=== PATIENT | female | born 1965 | race Caucasian/White ===

== ENCOUNTER → 2016-06-16 | Outpatient (CLI) | payer OTHER ==
[~2016-06-16] MED LIST: ACET50TA OR; BENA25TA4 PO; CYCL10TA PO; IBUP800T23 PO; OMEP40CA2 PO; RISE1TAB8 PO; VITA1CHW8 PO; ZOMI5TAB3 PO; ZOMI5TAB4 PO; metoprolol; pepcid; prednisone
== END ==
LOC: M LAB 14:49
PROVIDERS: ATTEND Family Medicine
DX: R53.83 Other fatigue (principal)

== ENCOUNTER → 2016-07-19 | Outpatient (REF) | payer OTHER ==
[2016-07-23 00:06] LABS: IgG SERUM (part of Subclasses) 764 mg/dL (700-1600); IgG Subclass 1 414 mg/dL (422-1292); IgG Subclass 2 218 mg/dL (117-747); IgG Subclass 3 34 mg/dL (41-129); IgG Subclass 4 14 mg/dL (1-291)
== END ==
LOC: M LAB REF 16:35
PROVIDERS: ATTEND Internal Medicine Medical Oncology
DX: D72.819 Decreased white blood cell count, unspecified (principal)

== ENCOUNTER → 2017-01-31 | Outpatient (CLI) | payer OTHER ==
[~2017-01-31] MED LIST changes: +IBUP1TAB7 PO; -IBUP800T23 PO; +ZOMI5TAB12 PO; -ZOMI5TAB4 PO
[2017-01-31 19:37] LABS: EOS % 0.7 % (0.0-3.0); IMMATURE GRANULOCYTE % 0.2 % (0-0); LYMPH # 1.2 10^3/uL (1.5-4.5); LYMPH % 28.9 % (24.0-44.0); MEAN CORPUSCULAR HEMOGLOBIN 27.4 pg (27.0-33.0); MEAN CORPUSCULAR HGB CONC 32.4 g/dl (32.0-36.5); MEAN CORPUSCULAR VOLUME 84.5 fl (80.0-96.0); MONO # 0.2 10^3/uL (0.0-0.8); MONO % 5.5 % (0.0-5.0); NEUTROPHILS # 2.6 10^3/uL (1.8-7.7); NEUTROPHILS % 63.7 % (36.0-66.0); PLATELET COUNT, AUTOMATED 287 10^3/uL (150-450); RED CELL DISTRIBUTION WIDTH 13.6 % (11.5-14.5)
[2017-01-31 20:13] LABS: ALBUMIN 4.2 GM/DL (3.2-5.2); ALBUMIN/GLOBULIN RATIO 1.27 (1.00-1.93); ALKALINE PHOSPHATASE 78 U/L (45-117); ALT/SGPT 24 U/L (12-78); ANION GAP 6 MEQ/L (8-16); AST/SGOT 16 U/L (7-37); BILIRUBIN,TOTAL 0.8 MG/DL (0.2-1.0); BLOOD UREA NITROGEN 9 MG/DL (7-18); CALCIUM LEVEL 9.6 MG/DL (8.5-10.1); CARBON DIOXIDE LEVEL 31 MEQ/L (21-32); CHLORIDE LEVEL 100 MEQ/L (98-107); CREATININE FOR GFR 0.58 MG/DL (0.55-1.02); GLOMERULAR FILTRATION RATE > 60.0 (>51); GLUCOSE, FASTING 87 MG/DL (70-105); POTASSIUM SERUM 4.5 MEQ/L (3.5-5.1); SODIUM LEVEL 137 MEQ/L (136-145); TOTAL PROTEIN 7.5 GM/DL (6.4-8.2)
== END ==
LOC: M LAB 17:51
PROVIDERS: ATTEND Family Medicine
DX: R10.9 Unspecified abdominal pain (principal)

== ENCOUNTER → 2017-03-20 | Outpatient (REF) | payer OTHER ==
[2017-03-21 14:53] LABS: APPEARANCE, URINE CLEAR (CLEAR); BACTERIA, URINE AUTO NEGATIVE (NEGATIVE); BILIRUBIN, URINE AUTO NEGATIVE (NEGATIVE); BLOOD, URINE BLOOD NEGATIVE (NEGATIVE); CALCIUM OXALATE CRYSTALS SMALL; COLOR, URINE YELLOW (YELLOW); GLUCOSE, URINE (UA) AUTO NEGATIVE (NEGATIVE); KETONE, URINE AUTO NEGATIVE (NEGATIVE); LEUKOCYTE ESTERASE, URINE AUTO NEGATIVE (NEGATIVE); MUCUS, URINE SMALL (NEGATIVE); NITRITE, URINE AUTO NEGATIVE (NEGATIVE); PROTEIN, URINE AUTO NEGATIVE (NEGATIVE); RBC, URINE AUTO 2 /HPF (0-3); SPECIFIC GRAVITY URINE AUTO 1.018 (1.002-1.035); SQUAMOUS EPITHELIAL CELL UR AU 0 /HPF (0-6); UROBILINOGEN, URINE AUTO 0.2 mg/dL (0.0-2.0); WBC, URINE AUTO 1 /HPF (0-3)
== END ==
LOC: M LAB REF 03-21 14:03
DX: N39.0 Urinary tract infection, site not specified (principal)

== ENCOUNTER 2017-04-25 20:48 | Inpatient (IN) | payer OTHER ==
[2017-04-25] MEDS: GABAPENTIN 300 MG CAP PO (21:00)
[2017-04-25] MEDS: GASTROGRAFIN SOLUTION 30ML PO ×2 (22:50→23:20)
[2017-04-25] MEDS: ONDANSETRON 4MG/2ML VIAL (J2405) IV (23:04)
[2017-04-25] MEDS: MORPHINE 4 MG/ML 1ML VIAL (J2270) IV (23:05)
[2017-04-25 23:09] LABS: BASO % 0.3 % (0.0-1.0); EOS % 0.5 % (0.0-3.0); HEMATOCRIT 36.3 % (36.0-47.0); HEMOGLOBIN 11.8 g/dl (12.0-16.0); IMMATURE GRANULOCYTE % 0.2 % (0-3.0); LYMPH # 1.2 10^3/uL (1.5-4.5); LYMPH % 18.2 % (24.0-44.0); MEAN CORPUSCULAR HEMOGLOBIN 27.3 pg (27.0-33.0); MEAN CORPUSCULAR HGB CONC 32.5 g/dl (32.0-36.5); MEAN CORPUSCULAR VOLUME 83.8 fl (80.0-96.0); MONO # 0.5 10^3/uL (0.0-0.8); MONO % 7.1 % (0.0-5.0); NEUTROPHILS # 4.7 10^3/uL (1.8-7.7); NEUTROPHILS % 73.7 % (36.0-66.0); PLATELET COUNT, AUTOMATED 209 10^3/uL (150-450); RED BLOOD COUNT 4.33 10^6/uL (4.00-5.40); RED CELL DISTRIBUTION WIDTH 14.1 % (11.5-14.5); WHITE BLOOD COUNT 6.3 10^3/uL (4.0-10.0)
[2017-04-25 23:36] LABS: ALBUMIN/GLOBULIN RATIO 1.48 (1.00-1.93); ALKALINE PHOSPHATASE 79 U/L (45-117); ALT/SGPT 19 U/L (12-78); ANION GAP 8 MEQ/L (8-16); AST/SGOT 11 U/L (7-37); BILIRUBIN,DIRECT 0.2 MG/DL (0.0-0.2); BILIRUBIN,TOTAL 1.1 MG/DL (0.2-1.0); BLOOD UREA NITROGEN 12 MG/DL (7-18); CALCIUM LEVEL 8.9 MG/DL (8.5-10.1); CARBON DIOXIDE LEVEL 29 MEQ/L (21-32); CHLORIDE LEVEL 102 MEQ/L (98-107); CREATININE FOR GFR 0.58 MG/DL (0.55-1.30); GLOMERULAR FILTRATION RATE > 60.0 (>51); GLUCOSE, FASTING 103 MG/DL (70-100); LIPASE 163 U/L (73-393); POTASSIUM SERUM 3.9 MEQ/L (3.5-5.1); SODIUM LEVEL 139 MEQ/L (136-145); TOTAL PROTEIN 6.7 GM/DL (6.4-8.2)
[2017-04-25 23:36] LABS: LACTIC ACID SEPSIS PROTOCOL 0.9 MMOL/L (0.4-2.0)
[2017-04-26] MEDS: METOCLOPRAMIDE INJ 10MG/2ML VIAL (J2765) IV (00:30)
[2017-04-26] MEDS ORDERED: ISOVUE-370 76% 100ML VIAL (Q9967) As Ordered (00:30)
[2017-04-26] MEDS: metroNIDAZOLE 750 MG in APPROPRIATE DILUENT 1 EA IV (01:45)
[2017-04-26] MEDS: CIPROFLOXACIN 400 MG in APPROPRIATE DILUENT 1 EA IV ×2 (01:50→15:36)
[2017-04-26] MEDS: HYDROmorphone HCL 1 MG/ML SYRINGE (J1170) IV (01:59)
[2017-04-26] MEDS: NS 1,000 ML IV ×3 (03:28→15:18)
[2017-04-26] MEDS ORDERED: MORPHINE 4 MG/ML 1ML VIAL (J2270) IV (03:30)
[2017-04-26] MEDS ORDERED: ONDANSETRON 4MG/2ML VIAL (J2405) IV (03:45)
[2017-04-26] MEDS: ZOLMitriptan TABLET 2.5MG PO ×2 (05:25→05:27)
[2017-04-26 06:15] LABS: HEMATOCRIT 34.8 % (36.0-47.0); HEMOGLOBIN 11.5 g/dl (12.0-16.0); MEAN CORPUSCULAR VOLUME 84.7 fl (80.0-96.0); PLATELET COUNT, AUTOMATED 196 10^3/uL (150-450); RED BLOOD COUNT 4.11 10^6/uL (4.00-5.40); RED CELL DISTRIBUTION WIDTH 14.3 % (11.5-14.5); WHITE BLOOD COUNT 5.2 10^3/uL (4.0-10.0)
[2017-04-26 06:37] LABS: ANION GAP 6 MEQ/L (8-16); BLOOD UREA NITROGEN 9 MG/DL (7-18); CALCIUM LEVEL 8.6 MG/DL (8.5-10.1); CARBON DIOXIDE LEVEL 31 MEQ/L (21-32); CHLORIDE LEVEL 102 MEQ/L (98-107); CREATININE FOR GFR 0.53 MG/DL (0.55-1.30); GLOMERULAR FILTRATION RATE > 60.0 (>51); GLUCOSE, FASTING 105 MG/DL (70-100); MAGNESIUM LEVEL 2.1 MG/DL (1.8-2.4); SODIUM LEVEL 139 MEQ/L (136-145)
[2017-04-26] MEDS ORDERED: SIMETHICONE 80 MG CHEW TAB PO (08:15)
[2017-04-26] MEDS: VITAMIN D 1,000 INTERNATIONAL UNITS TABLET PO (09:00)
[2017-04-26] MEDS: ENOXAPARIN 40 MG/0.4 ML SYRINGE (J1650) SC (09:05)
[2017-04-26] MEDS: PANTOPRAZOLE 40MG INJ (PROTONIX) (C9113) IV ×2 (09:05→20:01)
[2017-04-26] MEDS: KETOROLAC 30 MG/ML VIAL (J1885) IV ×2 (09:05→20:02)
[2017-04-26] MEDS: metroNIDAZOLE 500 MG in APPROPRIATE DILUENT 1 EA IV ×2 (11:27→20:02)
[2017-04-26] MEDS ORDERED: metroNIDAZOLE 500 MG in APPROPRIATE DILUENT 1 EA IV (15:15)
[2017-04-26] MEDS: GABAPENTIN 300 MG CAP PO (20:02)
[2017-04-27] MEDS: NS 1,000 ML IV (01:01)
[2017-04-27] MEDS: metroNIDAZOLE 500 MG in APPROPRIATE DILUENT 1 EA IV ×2 (02:29→10:36)
[2017-04-27] MEDS: CIPROFLOXACIN 400 MG in APPROPRIATE DILUENT 1 EA IV (03:44)
[2017-04-27 06:19] LABS: HEMATOCRIT 32.8 % (36.0-47.0); HEMOGLOBIN 10.7 g/dl (12.0-16.0); MEAN CORPUSCULAR HEMOGLOBIN 27.6 pg (27.0-33.0); MEAN CORPUSCULAR HGB CONC 32.6 g/dl (32.0-36.5); MEAN CORPUSCULAR VOLUME 84.8 fl (80.0-96.0); PLATELET COUNT, AUTOMATED 172 10^3/uL (150-450); RED BLOOD COUNT 3.87 10^6/uL (4.00-5.40); RED CELL DISTRIBUTION WIDTH 14.2 % (11.5-14.5)
[2017-04-27 06:39] LABS: ANION GAP 7 MEQ/L (8-16); BLOOD UREA NITROGEN 8 MG/DL (7-18); CALCIUM LEVEL 8.1 MG/DL (8.5-10.1); CARBON DIOXIDE LEVEL 26 MEQ/L (21-32); CHLORIDE LEVEL 109 MEQ/L (98-107); CREATININE FOR GFR 0.49 MG/DL (0.55-1.30); GLOMERULAR FILTRATION RATE > 60.0 (>51); GLUCOSE, FASTING 86 MG/DL (70-100); MAGNESIUM LEVEL 2.3 MG/DL (1.8-2.4); POTASSIUM SERUM 3.7 MEQ/L (3.5-5.1); SODIUM LEVEL 142 MEQ/L (136-145)
[2017-04-27] MEDS: PANTOPRAZOLE 40MG INJ (PROTONIX) (C9113) IV (10:36)
[2017-04-27] MEDS: VITAMIN D 1,000 INTERNATIONAL UNITS TABLET PO (10:37)
[2017-04-27] MEDS: KETOROLAC 30 MG/ML VIAL (J1885) IV (10:37)
[2017-04-27] MEDS: ENOXAPARIN 40 MG/0.4 ML SYRINGE (J1650) SC (10:37)
[2017-04-27] MEDS: ZOLMitriptan TABLET 2.5MG PO (12:03)
== END 2017-04-27 15:32 | disposition home or self-care (01) | DRG 392 ==
LOC: M ED INP 04-26 03:45 → M ED 20:48 → M MSPAV 04-26 05:40
DX: K57.32 Diverticulitis of large intestine without perforation or abscess without bleeding (principal); M79.7 Fibromyalgia; K58.9 Irritable bowel syndrome, unspecified; M81.0 Age-related osteoporosis without current pathological fracture; M50.30 Other cervical disc degeneration, unspecified cervical region; M19.90 Unspecified osteoarthritis, unspecified site; M54.5 Low back pain; Z88.8 Allergy status to other drugs, medicaments and biological substances; Z85.820 Personal history of malignant melanoma of skin; Z79.899 Other long term (current) drug therapy; Z88.7 Allergy status to serum and vaccine; Z88.5 Allergy status to narcotic agent

== ENCOUNTER → 2017-05-24 | Outpatient (REF) | payer OTHER | LOC: M LAB REF 19:19 | DX: J06.9 Acute upper respiratory infection, unspecified (principal) ==

== ENCOUNTER → 2017-08-14 | Outpatient (CLI) | payer OTHER | LOC: M RAD 07:26 | DX: R10.11 Right upper quadrant pain (principal); R19.7 Diarrhea, unspecified ==

== ENCOUNTER → 2017-08-16 | Outpatient (REF) | payer OTHER ==
[2017-08-16 19:07] LABS: IMMUNOGLOBULIN G 822 MG/DL (681-1648); IMMUNOGLOBULIN M 58.5 MG/DL (40-230)
[2017-08-19 08:06] LABS: IgG SERUM (part of Subclasses) 752 mg/dL (700-1600); IgG Subclass 1 300 mg/dL (248-810); IgG Subclass 2 147 mg/dL (130-555); IgG Subclass 3 21 mg/dL (15-102); IgG Subclass 4 14 mg/dL (2-96)
== END ==
LOC: M LAB REF 18:02
DX: D72.819 Decreased white blood cell count, unspecified (principal)

== ENCOUNTER → 2017-08-23 | Outpatient (REF) | payer OTHER ==
[2017-08-23 20:49] LABS: IMMUNOGLOBULIN G 878 MG/DL (681-1648); IMMUNOGLOBULIN M 61.1 MG/DL (40-230); TOTAL PROTEIN 7.3 GM/DL (6.4-8.2)
[2017-08-24 11:04] LABS: ALBUMIN 4.81 GM/DL (3.29-5.55); ALBUMIN % 65.9 % (55.8-66.1); ALPHA-1-GLOBULIN % 3.7 % (2.9-4.9); ALPHA-1-GLOBULINS 0.27 GM/DL (0.17-0.41); ALPHA-2-GLOBULINS % 8.2 % (7.1-11.8); BETA-1-GLOBULINS 0.45 GM/DL (0.28-0.60); BETA-1-GLOBULINS % 6.1 % (4.7-7.2); BETA-2-GLOBULINS 0.31 GM/DL (0.19-0.55); BETA-2-GLOBULINS % 4.2 % (3.2-6.5); GAMMA GLOBULIN % 11.9 % (11.1-18.8); GAMMA GLOBULINS 0.87 GM/DL (0.65-1.58)
[2017-08-26 00:07] LABS: BETA 2 MICROGLOBULIN 1.4 mg/L (0.6-2.4)
[2017-08-26 00:07] LABS: FREE KAPPA LIGHT CHAINS SERUM 7.8 mg/L (3.3-19.4); FREE LAMBDA LIGHT CHAINS SERUM 8.8 mg/L (5.7-26.3); KAPPA/LAMBDA RATIO SERUM 0.89 (0.26-1.65)
== END ==
LOC: M LAB REF 17:38
DX: D72.819 Decreased white blood cell count, unspecified (principal)

== ENCOUNTER → 2017-10-27 | Outpatient (CLI) | payer OTHER ==
[2017-10-27 08:06] LABS: HEMOGLOBIN 12.7 g/dl (12.0-15.5); MEAN CORPUSCULAR HEMOGLOBIN 27.5 pg (27.0-33.0); MEAN CORPUSCULAR HGB CONC 32.6 g/dl (32.0-36.5); MEAN CORPUSCULAR VOLUME 84.6 fl (80.0-96.0); PLATELET COUNT, AUTOMATED 235 10^3/uL (150-450); RED BLOOD COUNT 4.61 10^6/uL (4.00-5.40); RED CELL DISTRIBUTION WIDTH 14.6 % (11.5-14.5); WHITE BLOOD COUNT 3.3 10^3/uL (4.0-10.0)
[2017-10-27 08:37] LABS: ALBUMIN 4.1 GM/DL (3.2-5.2); ALBUMIN/GLOBULIN RATIO 1.32 (1.00-1.93); ALKALINE PHOSPHATASE 68 U/L (45-117); ALT/SGPT 31 U/L (12-78); ANION GAP 9 MEQ/L (8-16); AST/SGOT 15 U/L (7-37); BILIRUBIN,TOTAL 0.7 MG/DL (0.2-1.0); BLOOD UREA NITROGEN 15 MG/DL (7-18); CALCIUM LEVEL 8.9 MG/DL (8.5-10.1); CARBON DIOXIDE LEVEL 27 MEQ/L (21-32); CHLORIDE LEVEL 106 MEQ/L (98-107); CHOLESTEROL LEVEL 248 MG/DL (<200); CHOLESTEROL RISK RATIO 2.214 (<5); CREATININE FOR GFR 0.71 MG/DL (0.55-1.30); GLOMERULAR FILTRATION RATE > 60.0 (>51); GLUCOSE, FASTING 97 MG/DL (70-100); HDL CHOLESTEROL 112 MG/DL (>40); LDL CHOLESTEROL 123.6 MG/DL (<100); NON-HDL-C 136 MG/DL; POTASSIUM SERUM 3.9 MEQ/L (3.5-5.1); SODIUM LEVEL 142 MEQ/L (136-145); THYROID STIMULATING HORMONE 0.924 uIU/ML (0.358-3.740); THYROXINE (T4) 11.6 UG/DL (4.5-12.0); TOTAL PROTEIN 7.2 GM/DL (6.4-8.2); TRIGLYCERIDES LEVEL 62 MG/DL (<150)
[2017-10-27 09:21] LABS: TOTAL 25(OH) VITAMIN D 49.2 NG/ML (30.0-100.0)
== END ==
LOC: M LAB 07:19
DX: Z00.00 Encounter for general adult medical examination without abnormal findings (principal)
CPT/HCPCS: 84443

== ENCOUNTER → 2018-02-13 | Outpatient (CLI) | payer OTHER ==
[2018-02-13 07:42] LABS: ALBUMIN 3.8 GM/DL (3.2-5.2); ALBUMIN/GLOBULIN RATIO 1.36 (1.00-1.93); ALKALINE PHOSPHATASE 73 U/L (45-117); ALT/SGPT 24 U/L (12-78); ANION GAP 7 MEQ/L (8-16); AST/SGOT 14 U/L (7-37); BILIRUBIN,TOTAL 0.5 MG/DL (0.2-1.0); BLOOD UREA NITROGEN 26 MG/DL (7-18); CALCIUM LEVEL 8.7 MG/DL (8.5-10.1); CARBON DIOXIDE LEVEL 28 MEQ/L (21-32); CHLORIDE LEVEL 104 MEQ/L (98-107); CHOLESTEROL LEVEL 235 MG/DL (<200); CHOLESTEROL RISK RATIO 2.326 (<5); CREATININE FOR GFR 0.63 MG/DL (0.55-1.30); GLOMERULAR FILTRATION RATE > 60.0 (>51); GLUCOSE, FASTING 84 MG/DL (70-100); HDL CHOLESTEROL 101 MG/DL (>40); LDL CHOLESTEROL 123 MG/DL (<100); NON-HDL-C 134 MG/DL; POTASSIUM SERUM 4.1 MEQ/L (3.5-5.1); SODIUM LEVEL 139 MEQ/L (136-145); TOTAL PROTEIN 6.6 GM/DL (6.4-8.2); TRIGLYCERIDES LEVEL 53 MG/DL (<150)
== END ==
LOC: M LAB 06:04
DX: E78.5 Hyperlipidemia, unspecified (principal)
CPT/HCPCS: 80053

== ENCOUNTER → 2018-05-15 | Outpatient (CLI) | payer OTHER ==
[~2018-05-15] MED LIST changes: +CIPR500T3 PO; +DEXI30CA2 PO; +DEXI60CA2 PO; +FLAG500T PO; +GABA-843 PO; +VITA500046 PO
[2018-05-15 13:22] LABS: HEMOGLOBIN 12.3 g/dl (12.0-15.5); MEAN CORPUSCULAR HEMOGLOBIN 27.2 pg (27.0-33.0); MEAN CORPUSCULAR HGB CONC 32.4 g/dl (32.0-36.5); MEAN CORPUSCULAR VOLUME 84.1 fl (80.0-96.0); PLATELET COUNT, AUTOMATED 233 10^3/uL (150-450); RED BLOOD COUNT 4.52 10^6/uL (4.00-5.40); WHITE BLOOD COUNT 3.1 10^3/uL (4.0-10.0)
[2018-05-15 13:47] LABS: BLOOD UREA NITROGEN 14 MG/DL (7-18); CARBON DIOXIDE LEVEL 29 MEQ/L (21-32); CHLORIDE LEVEL 102 MEQ/L (98-107); GLOMERULAR FILTRATION RATE > 60.0 (>51); GLUCOSE, FASTING 84 MG/DL (70-100); POTASSIUM SERUM 4.1 MEQ/L (3.5-5.1); SODIUM LEVEL 139 MEQ/L (136-145)
== END ==
LOC: M LAB 12:44
PROVIDERS: ATTEND Internal Medicine Rheumatology
DX: R10.32 Left lower quadrant pain (principal); R10.12 Left upper quadrant pain; R19.7 Diarrhea, unspecified; R14.3 Flatulence

== ENCOUNTER → 2018-06-15 | Outpatient (REF) | payer OTHER ==
[~2018-06-15] MED LIST changes: -ACET50TA OR; +MAPA500T17 OR
== END ==
LOC: M LAB REF 09:42
PROVIDERS: ATTEND Physician Assistant
DX: J02.9 Acute pharyngitis, unspecified (principal)

== ENCOUNTER 2018-06-29 23:53 | Observation (INO) | payer OTHER ==
[~2018-06-29] VITALS: Ht 157.5 cm; Wt 70.5 kg
[2018-06-30] MEDS ORDERED: KETOROLAC 30 MG/ML VIAL (J1885) IV ONE (00:45)
[2018-06-30 00:53] LABS: BASO % 0.9 % (0.0-1.0); EOS # 0.1 10^3/uL (0.0-0.50); HEMATOCRIT 38.9 % (36.0-47.0); HEMOGLOBIN 12.4 g/dl (12.0-15.5); LYMPH # 1.9 10^3/uL (1.5-4.5); LYMPH % 41.5 % (24.0-44.0); MEAN CORPUSCULAR HGB CONC 31.9 g/dl (32.0-36.5); MEAN CORPUSCULAR VOLUME 84.7 fl (80.0-96.0); MONO # 0.4 10^3/uL (0.0-0.8); MONO % 8.4 % (0.0-5.0); NEUTROPHILS # 2.1 10^3/uL (1.8-7.7); NEUTROPHILS % 46.8 % (36.0-66.0); PLATELET COUNT, AUTOMATED 242 10^3/uL (150-450); RED BLOOD COUNT 4.59 10^6/uL (4.00-5.40); WHITE BLOOD COUNT 4.5 10^3/uL (4.0-10.0)
[2018-06-30 01:09] LABS: BLOOD UREA NITROGEN 19 MG/DL (7-18); CARBON DIOXIDE LEVEL 29 MEQ/L (21-32); CHLORIDE LEVEL 106 MEQ/L (98-107); CPK CREATINE PHOSPHOKINASE 2786 U/L (26-192); CREATININE FOR GFR 0.61 MG/DL (0.55-1.30); GLOMERULAR FILTRATION RATE > 60.0 (>51); GLUCOSE, FASTING 98 MG/DL (70-100); POTASSIUM SERUM 3.7 MEQ/L (3.5-5.1); SODIUM LEVEL 141 MEQ/L (136-145); TROPONIN I < 0.02 NG/ML (< 0.10)
[2018-06-30] MEDS ORDERED: NS 1,000 ML IV ONE ×2 (01:30→03:00)
[2018-06-30] MEDS ORDERED: ONDANSETRON 4MG/2ML VIAL (J2405) As Ordered ONE (01:59)
[2018-06-30] MEDS ORDERED: ONDANSETRON 4MG/2ML VIAL (J2405) IV ONE (02:00)
[2018-06-30 02:40] LABS: CK-MB VALUE MASS < 1.0 NG/ML (<3.6)
[2018-06-30] MEDS ORDERED: CHLO500TA PO (03:53)
[2018-06-30] MEDS ORDERED: QC A650T3 PO (03:53)
[2018-06-30] MEDS ORDERED: VITA500030 PO (03:53)
[2018-06-30] MEDS ORDERED: MONT10TA2 PO (03:54)
[2018-06-30 04:37] LABS: ALT/SGPT 31 U/L (12-78); BILIRUBIN,DIRECT < 0.1 MG/DL (0.0-0.2); BILIRUBIN,TOTAL 0.4 MG/DL (0.2-1.0); LDH LACTATE DEHYDROGENASE 252 U/L (84-246); LIPASE 262 U/L (73-393); MYOGLOBIN 342 NG/ML (13-71); TOTAL PROTEIN 6.5 GM/DL (6.4-8.2)
[2018-06-30 04:49] VITALS: BP 128/71
[2018-06-30 04:51] LABS: MB/CK RELATIVE INDEX 0.04 (< OR =4)
[2018-06-30] MEDS: NS 1,000 ML IV SCH ×4 (05:07→19:39)
[2018-06-30] MEDS: ACETAMINOPHEN TAB 650MG DOSE (2X325MG) PO PRN ×2 (05:40→12:09)
[2018-06-30 06:09] LABS: HEMATOCRIT 33.6 % (36.0-47.0); HEMOGLOBIN 10.7 g/dl (12.0-15.5); MEAN CORPUSCULAR HEMOGLOBIN 27.1 pg (27.0-33.0); MEAN CORPUSCULAR HGB CONC 31.8 g/dl (32.0-36.5); MEAN CORPUSCULAR VOLUME 85.1 fl (80.0-96.0); PLATELET COUNT, AUTOMATED 185 10^3/uL (150-450); RED BLOOD COUNT 3.95 10^6/uL (4.00-5.40); WHITE BLOOD COUNT 3.1 10^3/uL (4.0-10.0)
[2018-06-30] MEDS ORDERED: ZOLMitriptan TABLET 2.5MG PO PRN (06:30)
[2018-06-30 06:44] LABS: BLOOD UREA NITROGEN 14 MG/DL (7-18); C REACTIVE PROTEIN QUANTITATIV < 0.30 MG/DL (0.00-0.30); CALCIUM LEVEL 7.7 MG/DL (8.5-10.1); CARBON DIOXIDE LEVEL 27 MEQ/L (21-32); CHLORIDE LEVEL 113 MEQ/L (98-107); CK-MB VALUE MASS < 1.0 NG/ML (<3.6); CPK CREATINE PHOSPHOKINASE 2134 U/L (26-192); CREATININE FOR GFR 0.56 MG/DL (0.55-1.30); FREE T4 1.11 NG/DL (0.76-1.46); GLOMERULAR FILTRATION RATE > 60.0 (>51); GLUCOSE, FASTING 92 MG/DL (70-100); MB/CK RELATIVE INDEX 0.05 (< OR =4); SODIUM LEVEL 144 MEQ/L (136-145); TROPONIN I < 0.02 NG/ML (< 0.10)
[2018-06-30] MEDS: KETOROLAC 30 MG/ML VIAL (J1885) IV PRN ×2 (08:27→19:40)
[2018-06-30] MEDS: ENOXAPARIN 40 MG/0.4 ML SYRINGE (J1650) SC SCH (08:28)
[2018-06-30] MEDS: MONTELUKAST 10 MG TAB PO SCH (08:28)
--- NOTE | 2018-06-30 08:53 | HPE ---
DATE OF ADMISSION: 06/29/2018 PRIMARY CARE PHYSICIAN: Dr. Montes in [place]. SOLIDWORKS MECHANICAL DESIGNER: Dr. Cruz in [place]. NEUROLOGIST: Dr. Zee in [place]. CLUB LICENSEE: Dr. Gracia in [place]. COMMISSIONING SPECIALIST: Dr. Carole Forrester. ENT: Dr. Maher. CHIEF COMPLAINT: Chest pain and muscle aches. HISTORY OF PRESENT ILLNESS: Ms. Wade is a 52-year-old female with past medical history as listed below who presented to the emergency room (ER) after she experienced a sudden episode of chest pain that started around 11 p.m. on 06/29/2018 located in the right midchest and radiating to the left shoulder and through to the back. She describes it as constant without any aggravating or alleviating factors and has never experienced such a pain before. Of note, she did undergo an occipital nerve block around 9 a.m. on the same day with Dr. Zee in [place]. She states she has had occipital nerve blocks in the past before which normally leaves her with her right arm and hand numb for a couple of hours, however never a headache like this associated with it. She also complains of some nausea and at the time of admission, states that her chest pain is better after receiving Toradol, IV fluids and Zofran in the emergency room. She does also admit to diffuse muscle spasms since occipital nerve blocks earlier in the day. Of note, she was found to have an elevated CPK on admission around 2700. Upon further questioning, she states she normally does not work out but did have about a 1 hour workout at the gym this past Monday four days prior to her coming into the emergency room. Her regimen consisted of weights and a 30 minute circuit and she does admit to having decreased fluid intake where she normally drinks around two normal size water bottles in a day as well as a large cup of iced tea. She denies any recent injuries or falls or changes in medications. She does note that she did test positive for the flu about 1 week ago and completed a 5 day course of Tamiflu a few days prior to admission and she does admit to diffuse body aches since she worked out this past Monday and she has noted that her body aches have been getting worse since then. Regarding her chest pain, it appears that her entire chest wall hurts when she takes a deep breath. She will be admitted for further workup of her rhabdomyolysis and monitoring for her chest pain. PAST MEDICAL HISTORY: Irritable bowel syndrome. Osteoarthritis. Fibromyalgia. Osteoporosis. Benign intermittent neutropenia. Gastroesophageal reflux disease (GERD). Herniated cervical discs with peripheral neuropathy. Migraines. SURGICAL HISTORY: Hysterectomy. Two sinus surgeries. Melanoma excision on the right leg. ALLERGIES: CAFFEINE, CODEINE, TETANUS, TOXOID, YOHIMBINE. FAMILY HISTORY: Father had a stroke and myocardial infarction. Mother had a hernia. Both parents are alive. 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 Tobacco: She quit in 1994. Smoked for 10 years around one pack per day. Alcohol: She drinks socially about one beer monthly. Lives alone at home without any recent travel or exposures. VITAL SIGNS: Temperature 97.1, pulse 71, respirations 17, blood pressure 128/71, map of 90, pulse oximetry 99% on room air. REVIEW OF SYSTEMS: General: Denies fevers and chills, night sweats, weight loss. HEENT: Denies any headache, blurred vision, eye pain, ear pain, dysphasia. Dry mucous membranes. Cardiac: Admits to chest wall pain on the right side that radiates to the back into the left arm. Denies palpitations, edema. Lungs: Clear to auscultation bilaterally. Equal chest rise. No adventitious sounds. Abdomen: Soft, nontender, nondistended. Hypoactive bowel sounds. Extremities: 2+ radial pulses and dorsalis pedis bilaterally. No peripheral edema or calf tenderness. Musculoskeletal: 4-5/5 strength in all limbs that elicits pain with resistance to her movement. She is tender to palpation in essentially all regions of her body including legs, chest, back, arms. 5/5 systems manager strength bilaterally. Able to move all extremities independently against gravity. Neuro: No focal deficits. Motor and sensation intact throughout. Skin: No visible lesions, ulcerations or rashes. LABS: CBC essentially normal. Electrolytes normal. BUN and creatinine 19, 0.61. AST and ALT 54 and 31. LDH 252. Total CK 276. Myoglobin 342. TSH 3.95. D-dimer negative. Chest x-ray read is pending but by visualization appears to be essentially normal. ASSESSMENT AND PLAN: 1. Rhabdomyolysis likely secondary to recent episode of exercising 4 days prior which is when her diffuse muscle aches started. Also likely due to poor hydration as patient admits to only drinking two normal size water bottles a day. Will trend CPK which is around 2700 on admission and aggressively hydrate with IV fluids. Toradol and Tylenol for pain control. She denies any recent injuries or any use of a statin. Medication list reviewed. Her rhabdomyolysis may also be caused by recent influenza infection for which she completed Tamiflu a few days prior. She also does endorse mild cough and thus a respiratory panel has been ordered. CRP and sed rate are pending. Of note, she also is found to have elevated TSH which may be contributing. Free T4 is current pending. CRP and sed rate are ordered as well. Myopathy remains on differential as well although lower. Of note, patient is also on triptan which may be contributing. We will monitor for improvement and consider holding her triptan. 2. Atypical chest pain. Patient has right sided chest pain that radiates to the left arm and through to the back. Lipase level is normal. Cardiac markers normal. Will recheck second set of cardiac markers in the morning. EKG on initial presentation is essentially normal. Does not appear to be cardiac in nature and is more likely related to her underlying rhabdomyolysis and pain does worsen with deep inhalation. Continue monitoring. Pain meds have been ordered. 3. Hypothyroidism. TSH 3.95 on admission. Patient has no previous thyroid disease. Free T4 is pending. This may be contributing to her rhabdomyolysis. 4. Benign intermittent neutropenia. Patient has had workup with Dr. Carole Forrester. Currently white count is within normal on admission. Monitor. 5. Irritable bowel syndrome (IBS), not on any meds. 6. Osteoarthritis. Continue pain control. 7. Fibromyalgia/cervical herniated disc with peripheral neuropathy. Continue home gabapentin. 8. Gastroesophageal reflux disease (GERD). Continue PPI. 9. History of migraines. Patient is status post occipital nerve blocks with Dr. Zee in [place]. Continue home zolmitriptan. 10. Osteoporosis. Patient is on risedronate and vitamin D supplement. 11. Deep venous thrombosis (DVT) prophylaxis, Lovenox subcutaneous. DISPOSITION: Will admit to hospitalist service for observation and further workup and treatment of her rhabdomyolysis. My faculty preceptor for this patient encounter was physically present during the encounter and was fully available. All aspects of the patient interview, examination, medical decision making process, and medical care plan development were reviewed and approved by the faculty preceptor. The faculty preceptor is aware and concurs with the plan as stated in the body of this note and will attest to such by his/her cosignature.
[2018-06-30] MEDS ORDERED: OMEPRAZOLE 20 MG CAP PO SCH (09:00)
[2018-06-30] MEDS: PANTOPRAZOLE 40MG TAB (PROTONIX) PO SCH (12:08)
[2018-06-30 13:49] LABS: ERYTHROCYTE SEDIMENTATION RATE 6 mm/hr (0-30)
[2018-06-30 14:00] VITALS: BP 122/68
--- NOTE | 2018-06-30 19:04 | IPNPDOC ---
Subjective Date Seen The patient was seen on 06/30/18. Subjective Chief Complaint/HPI Chest soreness Assessment /Plan Assessment I personally saw and examined the patient earlier today. Vital signs were personally reviewed She presents with chest soreness She was found to have rhabdomyolysis Denies any recent trauma Reports she did do some light weightlifting on Monday. Had only slight soreness on Monday/Monday. Denies any other excess exertion No recent new medications No use of statins On exam, lungs are clear. Cardiac exam S1-S2 heard, no rubs or gallops. Abdomen is soft, nontender. Neurologic examthe patient is awake, alert, and sequentials appropriately Labs were personally reviewedCPK is downtrending but still quite elevated Rhabdomyolysis and atypical Chest pain: Continue IV fluids Encouraged oral fluid intake Recheck CPK in the morning Discussed with patient regarding outpatient follow-up with her primary Provider and outpatient stress testing since she does have some risk factors including age, female sex, remote history of smoking as well as family history of MD in her dad. She expresses understanding of the same. Troponins have been negative and no evidence of acute coronary syndrome and this time. Plan/VTE VTE Prophylaxis Ordered?: Yes VS, I&O, 24H, Fishbone Vital Signs/I&O Vital Signs Date Time Temp Pulse Resp B/P (MAP) Pulse Ox O2 Delivery O2 Flow Rate FiO2 06/30/18 14:00 99.1 68 18 122/68 (86) 97 06/30/18 04:20 Room Air 06/30/18 01:00 2.0 I&O- Last 24 Hours up to 6 AM 06/30/18 06:00 Intake Total 1300 ml Balance 1300 ml Laboratory Data 24H LABS Laboratory Tests 2 06/30/18 00:19: Immature Granulocyte % (Auto) 0.4, White Blood Count 4.5, Red Blood Count 4.59, Hemoglobin 12.4, Hematocrit 38.9, Mean Corpuscular Volume 84.7, Mean Corpuscular Hemoglobin 27.0, Mean Corpuscular Hemoglobin Concent 31.9L, Red Cell Distribution Width 14.2, Platelet Count 242, Neutrophils (%) (Auto) 46.8, Lymphocytes (%) (Auto) 41.5, Monocytes (%) (Auto) 8.4H, Eosinophils (%) (Auto) 2.0, Basophils (%) (Auto) 0.9, Neutrophils # (Auto) 2.1, Lymphocytes # (Auto) 1.9, Monocytes # (Auto) 0.4, Eosinophils # (Auto) 0.1, Basophils # (Auto) 0.0, Nucleated Red Blood Cells % (auto) 0.0, D-Dimer, Quantitative < 270, Anion Gap 6L, Glomerular Filtration Rate > 60.0, Blood Urea Nitrogen 19H, Creatinine 0.61, Sodium Level 141, Potassium Level 3.7, Chloride Level 106, Carbon Dioxide Level 29, Calcium Level 9.0, Total Creatine Kinase 2786H, Aspartate Amino Transf (A ST/SGOT) 54H, Alanine Aminotransferase (ALT/SGPT) 31, Lactate Dehydrogenase 252H, Alkaline Phosphatase 100, Total Bilirubin 0.4, Direct Bilirubin < 0.1, Creatine Kinase MB < 1.0, Creatine Kinase MB Relative Index 0.04, Myoglobin 342H, Troponin I < 0.02, Total Protein 6.5, Albumin 4.0, Albumin/Globulin Ratio 1.60, Lipase 262, Thyroid Stimulating Hormone (TSH) 3.950H 06/30/18 05:48: Nucleated Red Blood Cells % (auto) 0.0, Anion Gap 4L, Glomerular Filtration Rate > 60.0, Blood Urea Nitrogen 14, Creatinine 0.56, Sodium Level 144, Potassium Level 4.0, Chloride Level 113H, Carbon Dioxide Level 27, Calcium Level 7.7L, Total Creatine Kinase 2134H, Creatine Kinase MB < 1.0, Creatine Kinase MB Relative Index 0.05, Troponin I < 0.02, Erythrocyte Sedimentation Rate 6, C- Reactive Protein, Quantitative < 0.30, Free Thyroxine 1.11 CBC/BMP Laboratory Tests 06/30/18 00:19 Red Blood Count 4.59, Mean Corpuscular Volume 84.7, Mean Corpuscular Hemoglobin 27.0, Mean Corpuscular Hemoglobin Concent 31.9 L, Red Cell Distribution Width 14.2, Neutrophils (%) (Auto) 46.8, Lymphocytes (%) (Auto) 41.5, Monocytes (%) (Auto) 8.4 H, Eosinophils (%) (Auto) 2.0, Basophils (%) (Auto) 0.9, Neutrophils # (Auto) 2.1, Lymphocytes # (Auto) 1.9, Monocytes # (Auto) 0.4, Eosinophils # (Auto) 0.1, Basophils # (Auto) 0.0, Calcium Level 9.0, Total Creatine Kinase 2786 H 06/30/18 05:48 Red Blood Count 3.95 L, Mean Corpuscular Volume 85.1, Mean Corpuscular He moglobin 27.1, Mean Corpuscular Hemoglobin Concent 31.8 L, Red Cell Distribution Width 14.1, Calcium Level 7.7 L, Total Creatine Kinase 2134 H Microbiology Microbiology 06/30/18 Respiratory Virus Panel (PCR) ([facility]) - Final, Complete Human Rhinovirus/Enterovirus STACEY MORENO MD Jun 30, 2018 19:03
[2018-06-30] MEDS ORDERED: GABAPENTIN 300 MG CAP PO SCH (21:00)
[2018-06-30 22:00] VITALS: BP 109/69
[2018-07-01] MEDS: NS 1,000 ML IV SCH ×3 (01:10→10:00)
[2018-07-01] MEDS: ACETAMINOPHEN TAB 650MG DOSE (2X325MG) PO PRN (05:22)
[2018-07-01 06:00] VITALS: BP 116/69
[2018-07-01 07:08] LABS: HEMATOCRIT 33.5 % (36.0-47.0); HEMOGLOBIN 10.6 g/dl (12.0-15.5); MEAN CORPUSCULAR HEMOGLOBIN 27.1 pg (27.0-33.0); MEAN CORPUSCULAR HGB CONC 31.6 g/dl (32.0-36.5); MEAN CORPUSCULAR VOLUME 85.7 fl (80.0-96.0); PLATELET COUNT, AUTOMATED 179 10^3/uL (150-450); RED BLOOD COUNT 3.91 10^6/uL (4.00-5.40); WHITE BLOOD COUNT 3.1 10^3/uL (4.0-10.0)
[2018-07-01 07:41] LABS: BLOOD UREA NITROGEN 7 MG/DL (7-18); CARBON DIOXIDE LEVEL 27 MEQ/L (21-32); CHLORIDE LEVEL 112 MEQ/L (98-107); CPK CREATINE PHOSPHOKINASE 1729 U/L (26-192); CREATININE FOR GFR 0.51 MG/DL (0.55-1.30); GLOMERULAR FILTRATION RATE > 60.0 (>51); GLUCOSE, FASTING 88 MG/DL (70-100); POTASSIUM SERUM 3.6 MEQ/L (3.5-5.1); SODIUM LEVEL 144 MEQ/L (136-145)
[2018-07-01] MEDS: MONTELUKAST 10 MG TAB PO SCH (08:10)
[2018-07-01] MEDS: PANTOPRAZOLE 40MG TAB (PROTONIX) PO SCH (08:10)
[2018-07-01] MEDS: ENOXAPARIN 40 MG/0.4 ML SYRINGE (J1650) SC SCH (08:11)
--- NOTE | 2018-07-01 09:08 | REP ---
PA and lateral chest: Comparison is 07/30/2012. The lung chan are clear. The cardiac size is normal. The camacho, mediastinum, and skeletal structures are unremarkable. Impression: Negative PA and lateral chest. There is no interval change. Electronically Signed by Jonathan Cantu MD 06/30/2018 07:57 A
--- NOTE | 2018-07-01 17:10 | DS.PDOC ---
Discharge Summary General Date of Admission Jun 29, 2018 at 23:54 Date of Discharge 07/01/2018 Discharge Summary PROCEDURES PERFORMED DURING STAY: None. ADMITTING DIAGNOSES: Rhabdomyolysis likely secondary to recent episode of exercising, Atypical chest pain, Hypothyroidism, Benign intermittent neutropenia, Irritable bowel syndrome (IBS), not on any meds, Osteoarthritis, Fibromyalgia/cervical herniated disc with peripheral neuropathy, Gastroesophageal reflux disease, History of migraines, Osteoporosis. DISCHARGE DIAGNOSES: Rhabdomyolysis likely secondary to combination of recent influenza infection, enterovirus/rhinovirus infection and exercise; atypical chest pain that really related to the rhabdomyolysis/suicidal etiologypatient has been advised regarding outpatient stress testing through primary care provider, GERD, benign intermittent neutropenia, irritable bowel syndrome, hypothyroidism, osteoarthritis, fibromyalgia/cervical herniated disc with peripheral neuropathy, history of migraines, osteoporosis COMPLICATIONS/CHIEF COMPLAINT: Rhabdomyolysis. HISTORY OF PRESENT ILLNESS: The patient is a 52-year-old female but presented to the year with complaints of chest pain and muscle aches. She had received occipital block the day prior to onset of symptoms. She had also exist size about 4 days prior to presentation with some weights. In the ER, patient was noticed to have rhabdomyolysis. There was no evidence of acute current syndrome. Initial EKG was apparently unremarkable and troponins were negative. She was admitted to our facility for further management. HOSPITAL COURSE: Serial troponins remained negative. CPK was elevated at 2700 on presentation. With IV fluids, it did come down to 2100 and subsequently down to 1700 today on day of discharge. Viral panel came back positive for rhinovirus as well as enterovirus. In addition, patient had recent influenza infection. She was on no obvious medication that would cause the rhabdomyolysis. No trauma. I suspect the rhabdomyolysis was likely related to the influenza and enterovirus infections. Advised patient to drink plenty of fluids and to avoid excess exertional activities until okayed by her PCP. Also discussed with her regarding follow-up with PCP for outpatient stress testing since she does have cardiac risk factors including age, female sex, history of smoking as well as family history of ND, although at this time, there is no evidence of ACS. DISCHARGE MEDICATIONS: Please see below. ALLERGIES: Please see below. PHYSICAL EXAMINATION ON DISCHARGE: VITAL SIGNS: Please see below. GENERAL: Lying in bed, no distress HEENT: PERRLA CARDIOVASCULAR EXAMINATION: S1, S2 heard, no rubs or gallops RESPIRATORY EXAMINATION: Clear to auscultation bilaterally. No wheezes, no crackles ABDOMINAL EXAMINATION: Soft, nontender EXTREMITIES: No edema NEUROLOGICAL EXAMINATION: Awake, alert, and answering questions appropriately LABORATORY DATA: Please see below. IMAGING: Chest x-ray showed no acute findings ACTIVITY: As tolerated. Avoid excess exertion or heavy weight lifting until cleared by primary care provider DIET: Regular DISCHARGE PLAN: Patient to be discharged home today. Outpatient follow-up with primary care provider in one week DISPOSITION: Home ITEMS TO FOLLOWUP ON ON OUTPATIENT: 1. Discuss with primary care provider regarding outpatient stress test and outpatient follow-up on rhabdomyolysis DISCHARGE CONDITION: Stable. TIME SPENT ON DISCHARGE: 36 minutes. Vital Signs/I&Os Vital Signs Date Time Temp Pulse Resp B/P (MAP) Pulse Ox O2 Delivery O2 Flow Rate FiO2 07/01/18 06:00 97.9 60 16 116/69 (85) 95 06/30/18 04:20 Room Air 06/30/18 01:00 2.0 I&O- Last 24 Hours up to 6 AM 07/01/18 06:00 Intake Total 4360 ml Output Total 3650 ml Balance 710 ml Laboratory Data Labs 24H Laboratory Tests 2 07/01/18 05:59: Nucleated Red Blood Cells % (auto) 0.0, Anion Gap 5L, Glomerular Filtration Rate > 60.0, Blood Urea Nitrogen 7, Creatinine 0.51L, Sodium Level 144, Potassium Level 3.6, Chloride Level 112H, Carbon Dioxide Level 27, Calcium Level 8.0L, Total Creatine Kinase 1729H CBC/BMP Laboratory Tests 07/01/18 05:59 Red Blood Count 3.91 L, Mean Corpuscular Volume 85.7, Mean Corpuscular Hemoglobi n 27.1, Mean Corpuscular Hemoglobin Concent 31.6 L, Red Cell Distribution Width 14.4, Calcium Level 8.0 L Microbiology Microbiology 06/30/18 Respiratory Virus Panel (PCR) ([facility]) - Final, Complete Human Rhinovirus/Enterovirus Discharge Medications Scheduled Acetaminophen (Acetaminophen 8 Hour) 650 Mg Tablet.er, 1,300 MG PO QPM, (Reported) TAKES BEFORE BEDTIME AFTER DINNER Chlorzoxazone (Chlorzoxazone) 500 Mg Tablet, 250 MG PO QHS, (Reported) Cholecalciferol (Vitamin D3) (Vitamin D3) 5,000 Unit Tablet, 5,000 UNIT PO DAILY, (Reported) Dexlansoprazole (Dexilant) 60 Mg Cap, 60 MG PO DAILY, (Reported) Gabapentin (Gabapentin) 300 Mg Cap, 300 MG PO QHS, (Reported) Montelukast Sodium (Montelukast Sodium) 10 Mg Tablet, 10 MG PO DAILY, (Reported) Risedronate Sodium (Risedronate Sodium) 35 Mg Tab, 35 MG PO 1XWK, (Reported) TAKES ON MONDAY MORNINGS Scheduled PRN Ibuprofen (Ibuprofen) 800 Mg Tab, 800 MG PO TID PRN for PAIN, (Reported) Zolmitriptan (Zomig) 5 Mg Tab, 5 MG PO ASDIRECTED PRN for MIGRAINE, (Reported) CAN TAKE SECOND DOSE 2 HOURS AFTER FIRST DOSE. MAX DAILY DOSE IS 10 MG. Allergies Coded Allergies: caffeine (Verified Allergy, Severe, HIVES,CHESTTIGHTNESS,RAPID HEARTBEAT,ITCHINGFROM DEXYFEN, 06/30/18) ALSO RED MINT,RICE SEED,SCCHUAN PEPPER yohimbine (Verified Allergy, Severe, HIVES,ITCHING,RAPID HEARTBEAT,CHEST TIGHTNESS FROM DEXYFEN, 06/30/18) tetanus toxoid, adsorbed (Verified Allergy, Intermediate, HIVES,ITCHING,FEVER,JOINT PAINB, 06/30/18) codeine (Verified Allergy, Unknown, sweating/ vomiting , 06/30/18) with tylenol STACEY MORENO MD Jul 01, 2018 10:57
--- NOTE | 2018-07-01 20:36 | ECGEPIP ---
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
== END 2018-07-01 11:58 | disposition home or self-care (01) ==
LOC: M ED 23:53 → M ED INP 23:54 → M MSPAV 06-30 04:48
PROVIDERS: ADMIT Internal Medicine; ATTEND Internal Medicine
DX: M62.82 Rhabdomyolysis (principal); R07.89 Other chest pain; E03.9 Hypothyroidism, unspecified; D70.9 Neutropenia, unspecified; K58.0 Irritable bowel syndrome with diarrhea; M79.7 Fibromyalgia; K21.9 Gastro-esophageal reflux disease without esophagitis; M50.20 Other cervical disc displacement, unspecified cervical region; G43.909 Migraine, unspecified, not intractable, without status migrainosus; Z79.899 Other long term (current) drug therapy; Z88.7 Allergy status to serum and vaccine; Z87.891 Personal history of nicotine dependence; M17.9 Osteoarthritis of knee, unspecified
CPT/HCPCS: 36415; 71046; 80048; 80076; 82085; 82550; 82553; 83615; 83690; 83874; 84439; 84443; 84484; 85025; 85027; 85379; 85652; 86140; 87486; 87581; 87633; 87798; 93005; 93041; 94760; 96361; 96372; 96374; 96375; 96376; 99285; J1650; J1885; J2405

== ENCOUNTER → 2018-07-02 | Outpatient (CLI) | payer OTHER ==
[~2018-07-02] MED LIST changes: +CHLO500TA PO; +MONT10TA2 PO; +QC A650T3 PO; +VITA500030 PO
== END ==
LOC: M LAB 13:28
PROVIDERS: ATTEND Family Medicine
DX: M62.82 Rhabdomyolysis (principal)

== ENCOUNTER → 2018-07-12 | Outpatient (CLI) | payer OTHER | LOC: M LAB 06:30 | PROVIDERS: ATTEND Family Medicine | DX: M62.82 Rhabdomyolysis (principal) ==

== ENCOUNTER 2018-08-25 18:50 | Emergency (ER) | payer OTHER ==
[~2018-08-25] VITALS: Ht 157.5 cm; Wt 68.2 kg
[~2018-08-25 18:50] MED LIST changes: +MELO15TA28 PO
[2018-08-25 19:23] LABS: BASO % 1.1 % (0.0-1.0); EOS # 0.1 10^3/uL (0.0-0.50); EOS % 3.1 % (0.0-3.0); HEMATOCRIT 39.5 % (36.0-47.0); HEMOGLOBIN 12.6 g/dl (12.0-15.5); LYMPH # 1.2 10^3/uL (1.5-4.5); LYMPH % 34.2 % (24.0-44.0); MEAN CORPUSCULAR HEMOGLOBIN 28.1 pg (27.0-33.0); MEAN CORPUSCULAR HGB CONC 31.9 g/dl (32.0-36.5); MEAN CORPUSCULAR VOLUME 88.2 fl (80.0-96.0); MONO # 0.2 10^3/uL (0.0-0.8); MONO % 6.3 % (0.0-5.0); NEUTROPHILS # 1.9 10^3/uL (1.8-7.7); PLATELET COUNT, AUTOMATED 226 10^3/uL (150-450); RED BLOOD COUNT 4.48 10^6/uL (4.00-5.40); WHITE BLOOD COUNT 3.5 10^3/uL (4.0-10.0)
[2018-08-25] MEDS ORDERED: NS 1,000 ML IV ONE (19:30)
[2018-08-25 19:48] LABS: BLOOD UREA NITROGEN 21 MG/DL (7-18); CALCIUM LEVEL 8.9 MG/DL (8.5-10.1); CARBON DIOXIDE LEVEL 30 MEQ/L (21-32); CHLORIDE LEVEL 104 MEQ/L (98-107); CK-MB VALUE MASS < 1.0 NG/ML (<3.6); CPK CREATINE PHOSPHOKINASE 81 U/L (26-192); CREATININE FOR GFR 0.66 MG/DL (0.55-1.30); GLOMERULAR FILTRATION RATE > 60.0 (>51); GLUCOSE, FASTING 114 MG/DL (70-100); MB/CK RELATIVE INDEX 1.23 (< OR =4); POTASSIUM SERUM 3.5 MEQ/L (3.5-5.1); SODIUM LEVEL 140 MEQ/L (136-145); TROPONIN I < 0.02 NG/ML (< 0.10)
[2018-08-25] MEDS ORDERED: KETOROLAC 30 MG/ML VIAL (J1885) IV ONE (20:30)
[2018-08-25 22:00] VITALS: BP 113/67
--- NOTE | 2018-08-26 09:38 | REP ---
CHEST, PORTABLE, SINGLE VIEW: There is no evidence of acute infiltrate. No pleural effusion is seen. The heart is normal in size. The mediastinal silhouette is unremarkable. The visualized osseous structures are intact. IMPRESSION: No acute pulmonary disease. Electronically Signed by Jonathan Bourgeois MD 08/26/2018 04:26 P
--- NOTE | 2018-08-26 18:51 | ECGEPIP ---
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
== END 2018-08-25 22:04 | disposition home or self-care (01) ==
LOC: M ED 18:50
DX: M79.10 Myalgia, unspecified site (principal); E86.0 Dehydration; M79.7 Fibromyalgia; Z79.899 Other long term (current) drug therapy; Z88.5 Allergy status to narcotic agent; Z88.7 Allergy status to serum and vaccine; Z88.8 Allergy status to other drugs, medicaments and biological substances
CPT/HCPCS: 71045; 80048; 82550; 82553; 83605; 84484; 85025; 85379; 93005; 93041; 94760; 96361; 96374; 99285; J1885

== ENCOUNTER → 2019-01-08 | Outpatient (CLI) | payer OTHER ==
[~2019-01-08] MED LIST changes: -OMEP40CA2 PO; +OMEP40CA97 PO
[2019-01-08 06:48] LABS: BASO % 0.7 % (0.0-1.0); EOS # 0.1 10^3/uL (0.0-0.5); EOS % 3.3 % (0.0-3.0); HEMATOCRIT 41.9 % (36.0-47.0); HEMOGLOBIN 13.4 g/dl (12.0-15.5); LYMPH # 1.4 10^3/uL (1.5-5.0); LYMPH % 33.5 % (24.0-44.0); MEAN CORPUSCULAR HEMOGLOBIN 27.7 pg (27.0-33.0); MEAN CORPUSCULAR VOLUME 86.6 fl (80.0-96.0); MONO # 0.3 10^3/uL (0.0-0.8); MONO % 6.7 % (0.0-5.0); NEUTROPHILS # 2.3 10^3/uL (1.5-8.5); NEUTROPHILS % 55.6 % (36.0-66.0); PLATELET COUNT, AUTOMATED 278 10^3/uL (150-450); RED BLOOD COUNT 4.84 10^6/uL (4.00-5.40); WHITE BLOOD COUNT 4.2 10^3/uL (4.0-10.0)
[2019-01-08 07:14] LABS: ALT/SGPT 20 U/L (12-78); BILIRUBIN,TOTAL 0.7 MG/DL (0.2-1.0); BLOOD UREA NITROGEN 21 MG/DL (7-18); CALCIUM LEVEL 9.5 MG/DL (8.5-10.1); CARBON DIOXIDE LEVEL 29 MEQ/L (21-32); CHLORIDE LEVEL 104 MEQ/L (98-107); CHOLESTEROL LEVEL 246 MG/DL (<200); CHOLESTEROL RISK RATIO 2.102 (<5); CREATININE FOR GFR 0.73 MG/DL (0.55-1.30); FREE T4 1.33 NG/DL (0.76-1.46); GLOMERULAR FILTRATION RATE > 60.0 (>51); GLUCOSE, FASTING 92 MG/DL (70-100); HDL CHOLESTEROL 117 MG/DL (>40); LDL CHOLESTEROL 115 MG/DL (<100); NON-HDL-C 129 MG/DL; POTASSIUM SERUM 4.1 MEQ/L (3.5-5.1); SODIUM LEVEL 139 MEQ/L (136-145); TOTAL PROTEIN 7.3 GM/DL (6.4-8.2); TRIGLYCERIDES LEVEL 70 MG/DL (<150)
[2019-01-08 09:09] LABS: TOTAL 25(OH) VITAMIN D 49.9 NG/ML (30.0-100.0)
== END ==
LOC: M LAB 06:05
PROVIDERS: ATTEND Family Medicine
DX: R53.81 Other malaise (principal); R53.83 Other fatigue

== ENCOUNTER 2019-04-21 15:56 | Emergency (ER) | payer OTHER ==
[~2019-04-21] VITALS: Ht 157.5 cm; Wt 60.2 kg
[~2019-04-21 15:56] MED LIST changes: -MONT10TA2 PO; +MONT10TA4 PO
[2019-04-21] MEDS ORDERED: LANS30CA93 (16:04)
[2019-04-21] MEDS ORDERED: MYRB50TA (16:04)
[2019-04-21] MEDS ORDERED: CIPR-249 PO (16:04)
[2019-04-21] MEDS ORDERED: FLAG500T PO (16:04)
[2019-04-21] MEDS ORDERED: NS 1,000 ML IV ONE (17:15)
[2019-04-21] MEDS ORDERED: KETOROLAC 30 MG/ML VIAL (J1885) IV ONE (17:45)
[2019-04-21] MEDS ORDERED: ONDANSETRON 4MG/2ML VIAL (J2405) IV ONE (17:45)
[2019-04-21 18:08] LABS: BASO % 0.5 % (0.0-1.0); EOS # 0.1 10^3/uL (0.0-0.5); EOS % 2.1 % (0.0-3.0); HEMATOCRIT 42.3 % (36.0-47.0); HEMOGLOBIN 13.4 g/dl (12.0-15.5); LYMPH # 1.1 10^3/uL (1.5-5.0); LYMPH % 28.3 % (24.0-44.0); MEAN CORPUSCULAR HEMOGLOBIN 27.2 pg (27.0-33.0); MEAN CORPUSCULAR HGB CONC 31.7 g/dl (32.0-36.5); MONO # 0.3 10^3/uL (0.0-0.8); MONO % 7.5 % (0.0-5.0); NEUTROPHILS # 2.3 10^3/uL (1.5-8.5); NEUTROPHILS % 61.3 % (36.0-66.0); PLATELET COUNT, AUTOMATED 230 10^3/uL (150-450); RED BLOOD COUNT 4.92 10^6/uL (4.00-5.40); WHITE BLOOD COUNT 3.8 10^3/uL (4.0-10.0)
[2019-04-21] MEDS ORDERED: ISOVUE-370 76% 100ML VIAL (Q9967) As Ordered ONE (18:37)
--- NOTE | 2019-04-21 19:00 | REPVR ---
PROCEDURE INFORMATION: Exam: CT Abdomen And Pelvis With Contrast Exam date and time: 04/21/2019 6:40 PM Age: 53 years old Clinical indication: Abdominal pain; Localized; Right lower quadrant (rlq); Additional info: Rlq pain TECHNIQUE: Imaging protocol: Computed tomography of the abdomen and pelvis with intravenous contrast. Radiation optimization: All CT scans at this facility use at least one of these dose optimization techniques: automated exposure control; mA and/or kV adjustment per patient size (includes targeted exams where dose is matched to clinical indication); or iterative reconstruction. Contrast material: ISOVUE 370; Contrast volume: 100 ml; Contrast route: IV; COMPARISON: CT ABD/PEL W/IV ORAL CONTRAS 04/26/2017 1:08 AM FINDINGS: Liver: There is a diffuse decrease in hepatic parenchymal density, consistent with steatosis. Gallbladder and bile ducts: Normal. No calcified stones. No ductal dilation. Pancreas: Normal. No ductal dilation. Spleen: Normal. No splenomegaly. Adrenals: Normal. No mass. Kidneys and ureters: Normal. No hydronephrosis. Stomach and bowel: There is increased feces throughout the colon consistent with constipation. Appendix: No evidence of appendicitis. Intraperitoneal space: Unremarkable. No free air. No significant fluid collection. Vasculature: Unremarkable. No abdominal aortic aneurysm. Lymph nodes: Unremarkable. No enlarged lymph nodes. Bladder: Unremarkable as visualized. Reproductive: There has been a hysterectomy. Bones/joints: [id number] central spinal stenosis at L2-L3, L3-L4, moderate spinal stenosis at L4-L5. Soft tissues: Unremarkable. IMPRESSION: 1. There is a diffuse decrease in hepatic parenchymal density, consistent with steatosis. 2. There has been a hysterectomy. 3. There is increased feces throughout the colon consistent with constipation. Electronically signed by: Watson Gibbons On 04/21/2019 19:00:36 PM
[2019-04-21 19:43] VITALS: BP 152/84
[2019-04-21 19:48] LABS: ALBUMIN 3.6 GM/DL (3.2-5.2); BILIRUBIN,DIRECT 0.1 MG/DL (0.0-0.2); BILIRUBIN,TOTAL 0.5 MG/DL (0.2-1.0); TOTAL PROTEIN 6.3 GM/DL (6.4-8.2)
[2019-04-21] MEDS ORDERED: MAGN1.743 PO (19:59)
[2019-04-21] MEDS ORDERED: MIRA3350 PO (19:59)
== END 2019-04-21 20:54 | disposition home or self-care (01) ==
LOC: M ED 15:56
DX: K59.00 Constipation, unspecified (principal); J45.909 Unspecified asthma, uncomplicated; E78.5 Hyperlipidemia, unspecified; G43.909 Migraine, unspecified, not intractable, without status migrainosus; K21.9 Gastro-esophageal reflux disease without esophagitis; K44.9 Diaphragmatic hernia without obstruction or gangrene; Z79.899 Other long term (current) drug therapy; Z88.5 Allergy status to narcotic agent; Z88.8 Allergy status to other drugs, medicaments and biological substances
CPT/HCPCS: 74177; 80047; 80076; 81001; 83690; 85025; 96374; 96375; 99284; J1885; J2405; Q9967

== ENCOUNTER → 2019-08-14 | Outpatient (CLI) | payer OTHER ==
[~2019-08-14] MED LIST changes: +CIPR-249 PO; +CYCL-707 PO; -CYCL10TA PO; +LANS30CA93; +MAGN1.743 PO; +MIRA3350 PO; +MYRB50TA
[2019-08-14 16:22] LABS: BASO % 0.8 % (0.0-1.0); EOS # 0.1 10^3/uL (0.0-0.5); EOS % 2.2 % (0.0-3.0); HEMATOCRIT 38.5 % (36.0-47.0); HEMOGLOBIN 12.5 g/dl (12.0-15.5); LYMPH # 1.1 10^3/uL (1.5-5.0); LYMPH % 30.8 % (24.0-44.0); MEAN CORPUSCULAR HGB CONC 32.5 g/dl (32.0-36.5); MEAN CORPUSCULAR VOLUME 86.1 fl (80.0-96.0); MONO # 0.3 10^3/uL (0.0-0.8); NEUTROPHILS # 2.2 10^3/uL (1.5-8.5); NEUTROPHILS % 58.7 % (36.0-66.0); PLATELET COUNT, AUTOMATED 232 10^3/uL (150-450); RED BLOOD COUNT 4.47 10^6/uL (4.00-5.40); WHITE BLOOD COUNT 3.7 10^3/uL (4.0-10.0)
== END ==
LOC: M WUC 15:02
PROVIDERS: ATTEND Internal Medicine Medical Oncology
DX: D72.819 Decreased white blood cell count, unspecified (principal)